=== PATIENT | female | born 1940 | race Caucasian/White ===

== ENCOUNTER 2018-01-07 21:36 | Emergency (ER) | payer MEDICARE ==
[2018-01-07 22:20] LABS: BASO % 0.2 % (0-6); GRAN % 53.4 % (47-80); HEMATOCRIT 38.2 % (35.0-47.0); HEMOGLOBIN 12.6 gm/dl (11.6-16.0); LYMPH % 33.4 % (16-45); MEAN CELL VOLUME 80.9 fl (81-97); MEAN CORPUSCULAR HEMOGLOBIN 26.7 pg (27-33); MEAN PLATELET VOLUME 11.5 fl (7.4-10.4); PLATELET COUNT 173 K/uL (130-400); RED BLOOD COUNT 4.72 M/uL (3.80-5.40); RED CELL DISTRIBUTION WIDTH 21.1 % (11.5-14.5)
[2018-01-07 22:28] LABS: BLOOD UREA NITROGEN 11 mg/dL (8-23); CREATININE 0.8 mg/dL (0.5-0.9); EST GLOMERULAR FILTRATION RATE > 60 mL/min
[2018-01-07 22:31] LABS: GLUCOSE,RANDOM 114 mg/dL (74-109)
--- NOTE | 2018-01-07 22:36 | Emergency Department Record ---
History of Present Illness - General Chief Complaint: Hypertension Stated Complaint: HIGH BLOOD PRESSURE Time Seen by Provider: 01/07/18 21:54 Source: Patient Mode of Arrival: Ambulatory Limitations: No limitations - History of Present Illness Initial Comments: pt found her bp to be high. she then took her nightly bp meds. she is planning a trip to [place] tomorrow in the car and she wanted to make sure she was ok. she has no cp and no fish and no symptoms Onset/Timin -: Hour(s) History of Same: Yes Associated Symptoms: Denies other symptoms - Related Data Home Medications Medication Instructions Recorded Confirmed Last Taken Aspirin 81 mg PO DAILY 01/07/18 01/07/18 Unknown Clonidine HCl [Catapres] 0.2 mg PO BID 01/07/18 01/07/18 Unknown Levothyroxine Sodium [Synthroid] 50 mcg PO DAILY 01/07/18 01/07/18 Unknown Losartan/Hydrochlorothiazide 1 each PO DAILY 01/07/18 01/07/18 Unknown [Losartan-Hctz 50-12.5 mg Tab] Omeprazole 40 mg PO DAILY 01/07/18 01/07/18 Unknown Allergies Allergy/AdvReac Type Severity Reaction Status Date / Time No Known Drug Allergies Allergy Verified 06/06/16 13:22 Travel Screening - Travel/Exposure Within Last 30 Days Have you traveled within the last 30 days?: No - Travel Symptoms Symptom Screening: None Review of Systems Reviewed: No additional complaints except as noted below Constitutional: Reports: As per HPI. Denies: Chills, Fever, Malaise, Night sweats, Weakness, Weight change Eyes: Reports: As per HPI. Denies: Eye discharge, Eye pain, Photophobia, Vision change ENT: Reports: As per HPI. Denies: Congestion, Dental pain, Ear pain, Epistaxis , Hearing loss, Throat pain Respiratory: Reports: As per HPI. Denies: Cough, Dyspnea, Hemoptysis, Stridor, Wheezes Cardiovascular: Reports: As per HPI. Denies: Arrhythmia, Chest pain, Dyspnea on exertion, Edema, Murmurs, Orthopnea, Palpitations, Paroxysmal nocturnal dyspnea, Rheumatic Fever, Syncope Endocrine: Reports: As per HPI. Denies: Fatigue, Heat or cold intolerance, Polydipsia, Polyuria Gastrointestinal: Reports: As per HPI. Denies: Abdominal pain, Constipation, Diarrhea, Hematemesis, Hematochezia, Melena, Nausea, Vomiting Genitourinary: Reports: As per HPI. Denies: Abnormal menses, Discharge, Dyspareunia, Dysuria, Frequency, Hematuria, Incontinence, Retention, Urgency Musculoskeletal: Reports: As per HPI. Denies: Arthralgia, Back pain, Gout, Joint swelling, Myalgia, Neck pain Skin: Reports: As per HPI. Denies: Bruising, Change in color, Change in hair/ nails, Lesions, Pruritus, Rash Neurological: Reports: As per HPI. Denies: Abnormal gait, Confusion, Headache, Numbness, Paresthesias, Seizure, Tingling, Tremors, Vertigo, Weakness Psychiatric: Reports: As per HPI. Denies: Anxiety, Auditory hallucinations, Depression, Homicidal thoughts, Suicidal thoughts, Visual hallucinations Hematological/Lymphatic: Reports: As per HPI. 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 hemorrhoids) Comment:: chronic constipation - Hx Genitourinary Disorders: Yes Hx Bladder Problem: Yes (incontinence->better after surgery) - ENDOCRINE Hx Endocrine Disorders: Yes Hx Thyroid Disease: Yes - MUSCULOSKELETAL Hx Musculoskeletal Disorders: No - PSYCH Hx Psych Problems: No - HEMATOLOGY/ONCOLOGY Hx Hematology/Oncology Disorders: No Family Medical History Any Significant Family History?: Yes Hx Cancer: Mother *Cancer Comment: esophageal Hx Diabetes: Brother/Sister Hx Heart Disease: Father, Brother/Sister Hx HTN: Father, Mother, Brother/Sister Hx Stroke: Brother/Sister Physical Exam - General General Appearance: Alert, Oriented x3, Cooperative, No acute distress - Head Head exam: Normal inspection - Eye Eye exam: Normal appearance, PERRL, EOMI Pupils: Normal accommodation - ENT ENT exam: Normal exam, Mucous membranes moist, Normal external ear exam, Normal orophraynx Ear exam: Normal external inspection. negative: External canal tenderness Nasal Exam: Normal inspection. negative: Discharge, Sinus tenderness Mouth exam: Normal external inspection, Tongue normal Teeth exam: Normal inspection. negative: Dental caries Throat exam: Normal inspection. negative: Tonsillar erythema, Tonsillar exudate - Neck Neck exam: Normal inspection, Full ROM. negative: Tenderness - Respiratory Respiratory exam: Normal lung sounds bilaterally. negative: Respiratory distress - Cardiovascular Cardiovascular Exam: Regular rate, Normal rhythm, Normal heart sounds - GI/Abdominal GI/Abdominal exam: Soft, Normal bowel sounds. negative: Tenderness - Rectal Rectal exam: Deferred - exam: Deferred - Extremities Extremities exam: Normal inspection, Full ROM, Normal capillary refill. negative: Tenderness - Back Back exam: Reports: Normal inspection, Full ROM. Denies: Muscle spasm, Rash noted, Tenderness - Neurological Neurological exam: Alert, CN II-XII intact, Normal gait, Oriented X3 - Psychiatric Psychiatric exam: Normal affect, Normal mood - Skin Skin exam: Dry, Intact, Normal color, Warm Course Vital Signs 01/07/18 01/07/18 21:43 21:53 Temperature 97.7 F Pulse Rate 74 Pulse Rate [ 65 Pulse Ox Probe] Respiratory 16 16 Rate Blood Pressure 210/102 Blood Pressure 168/99 [Left Arm] Pulse Ox 95 98 - Reevaluation(s) Reevaluation #1: 01/07/18 23:09 pt educated re bp and meds Medical Decision Making - Lab Data Result diagrams: 01/07/18 22:16 01/07/18 22:16 Lab Results 01/07/18 Range/Units 22:16 WBC 5.0 (4.2-12.2) K/uL RBC 4.72 (3.80-5.40) M/uL Hgb 12.6 (11.6-16.0) gm/dl Hct 38.2 (35.0-47.0) % MCV 80.9 L (81-97) fl MCH 26.7 L (27-33) pg MCHC 33.0 (32-36) g/dl RDW 21.1 H (11.5-14.5) % Plt Count 173 (130-400) K/uL MPV 11.5 H (7.4-10.4) fl Gran % 53.4 (47-80) % Lymphocytes % 33.4 (16-45) % Monocytes % 11.0 H (0-9) % Eosinophils % 2.0 (0-6) % Basophils % 0.2 (0-6) % Disposition Disposition: Discharge Clinical Impression: Hypertension Qualifiers: Hypertension type: unspecified Qualified Code(s): I10 - Essential (primary) hypertension Disposition: Home, Self-Care Condition: (1) Good Instructions: Hypertension (ED) Additional Instructions: follow up with family doctor, call tomorrow. return sooner if worse. monitor bp Forms: Patient Portal Access Quality - Quality Measures Quality Measures: N/A - Blood Pressure Screening Does Patient Have Any of the Following: Active Dx of HTN Blood Pressure Classification: Hypertensive Reading Systolic Measurement: 210 Diastolic Measurement: 102 Screening for High Blood Pressure: Patient Exclusion, Hx of HTN [[id number]]
[2018-01-07 22:44] LABS: THYROID STIMULATING HORMONE 2.08 uIU/mL (0.270-4.20)
== END 2018-01-07 23:21 | disposition home or self-care (01) ==
LOC: ER 21:36
DX: I10 Essential (primary) hypertension (principal); Z86.711 Personal history of pulmonary embolism
CPT/HCPCS: 80048; 84443; 85025; 99283

== ENCOUNTER 2019-03-29 09:23 | Day surgery (SDC) | payer MEDICARE ==
[~2019-03-29 09:23] MED LIST: ACETAMINOPHEN 1,000 MG/100 ML BTL IVPB ONE; CEFAZOLIN 2 Gram 2 GM/50 ML BAG IVPB ONE
[2019-03-29] MEDS ORDERED: FENTANYL PF 100MCG/2ML VIAL IV ONE (09:24)
[2019-03-29] MEDS ORDERED: ONDANSETRON HCL IV 4 MG/2 ML VIAL IVP ONE (09:24)
[2019-03-29] MEDS ORDERED: SEVOFLURANE 250 ML INH ONE (09:24)
[2019-03-29] MEDS ORDERED: PROPOFOL 10 MG/ML VIAL IV ONE (09:24)
[2019-03-29] MEDS ORDERED: LIDOCAINE 2% MDV (20MG/ML) 20ML VIAL IV ONE (09:24)
[2019-03-29] MEDS ORDERED: GELATIN SPONGE,ABSORBABLE 12-7MM TP ONE (09:24)
[2019-03-29] MEDS ORDERED: MIDAZOLAM HCL 2MG/2ML VIAL IV ONE (09:24)
[2019-03-29] MEDS ORDERED: 0.9 % SODIUM CHLORIDE 1000ML 1,000 ML IV ONE ×2 (10:00→13:17)
[2019-03-29] MEDS ORDERED: BUPIVACAINE LIPOSOME 266MG/20ML VIAL SQ ONE (13:00)
[2019-03-29] MEDS ORDERED: DIBUCAINE 30 GM TUBE TOP ONE (13:00)
--- NOTE | 2019-03-30 10:00 | Operative Note ---
DATE OF SURGERY: 03/29/2019 SURGEON: Ranjan Heath DO PREOPERATIVE DIAGNOSIS: Grade 3 hemorrhoids. POSTOPERATIVE DIAGNOSIS: Grade 3 hemorrhoids. OPERATION: Internal and external hemorrhoidectomy. INDICATION: The patient is a 70-year-old female who has had long-standing hemorrhoids. She tried multiple topical treatments without success. We did discuss hemorrhoidectomy. Risks, benefits, and alternatives were discussed. Risks include bleeding, infection, acute or chronic pain, recurrence. She understood this fully. Thereafter, consent was signed and questions answered. PROCEDURE: The patient was taken to the operating room and placed in a supine position. General anesthesia was administered per the department of anesthesia. The patient's perianal region was prepped and draped in the usual fashion. At this time, a 4-quadrant anal block was done with 20 mL of Exparel. A bivalve speculum was placed. There were 3 main hemorrhoidal complexes which were ligated with the Nilesh harmonic on the low setting. Each pedicle was tied off with 2-0 Vicryl. The skin overlying the sphincter muscle was also approximated with the same 2-0 Vicryl in a running locked fashion. At this time, Gelfoam and Dibucaine were placed. The patient was taken to the recovery room in stable condition. CC: Dwayne LUCAS
== END 2019-03-29 14:15 | disposition home or self-care (01) ==
LOC: SUR 09:23
PROVIDERS: ATTEND Surgery
DX: K64.2 Third degree hemorrhoids (principal); I10 Essential (primary) hypertension; K21.9 Gastro-esophageal reflux disease without esophagitis; E03.9 Hypothyroidism, unspecified; Z86.711 Personal history of pulmonary embolism
CPT/HCPCS: 46260; 00902; J0690; C9290; J2405; J7030

== ENCOUNTER 2019-08-23 12:40 | Day surgery (SDC) | payer MEDICARE ==
[2019-08-23] MEDS ORDERED: PROPOFOL 10 MG/ML VIAL IV ONE (12:41)
[2019-08-23] MEDS ORDERED: LIDOCAINE 2% MDV (20MG/ML) 20ML VIAL IV ONE (12:41)
--- NOTE | 2019-08-24 08:20 | Operative Note ---
OPERATION: COLONOSCOPY to the cecum with cold snare polypectomy x2. INDICATION: History of adenomatous polyps. The patient also complains of constipation sometimes passing weeks between stools. ANESTHESIA: Intravenous sedation was administered by the department of anesthesiology and included Diprivan titrated to effect. PROCEDURE: Following informed consent from this alert individual including a discussion of the risks and benefits of the procedure and an opportunity for the patient to ask questions, the patient was in the left lateral decubitus position. A digital rectal examination was performed. Anal scarring was noted with stenosis. No other palpable abnormalities were detected. Following this, the Olympus XBR912 video colonoscope was inserted into the rectum without resistance. Melanosis coli was quite apparent. The colonoscope was advanced up through the bowel to the level of the cecum without much difficulty. Throughout the bowel the mucosa appeared normal, the folds were normal, and the bowel was fairly well distensible except for the melanosis coli which again was quite pronounced. The cecum was defined by noting the appendiceal orifice and cecal base. At the base of the cecum, there was a sessile polyp measuring 5 mm in size which was removed with cold snare polypectomy and suctioned through the colonoscope into a collection trap. There was a second 4 mm polyp noted in the ascending colon that likewise was removed with cold snare polypectomy. No other changes were appreciated until the rectum was reached. Retroflexion in the rectum again revealed anal stenosis with scarring. The endoscope was straightened and removed. The patient tolerated the procedure well and was returned to the recovery area in stable condition. IMPRESSION: 1. Cecal polyp measuring 5 mm in size removed with cold snare. 2. A 4 mm ascending colon polyp removed with cold snare. 3. Extensive melanosis coli. 4. Anal scarring with stenosis. RECOMMENDATIONS: The patient was advised to add MiraLax daily to her regimen which also includes fiber. If her symptoms should persist, perhaps prokinetic agents such as Linzess may prove beneficial. Followup will be with Dr. Bates and Dr. Dwayne Crowell. As always, thank you for allowing me to participate in the care of your patient. LANCE
== END 2019-08-23 15:25 | disposition home or self-care (01) ==
LOC: HOP 12:40
PROVIDERS: ATTEND Internal Medicine Gastroenterology
DX: Z09 Encounter for follow-up examination after completed treatment for conditions other than malignant neoplasm (principal); Z86.010 Personal history of colon polyps; K59.00 Constipation, unspecified; D12.2 Benign neoplasm of ascending colon; D12.0 Benign neoplasm of cecum; K63.89 Other specified diseases of intestine; K62.89 Other specified diseases of anus and rectum; K62.4 Stenosis of anus and rectum; I10 Essential (primary) hypertension